=== PATIENT | female | born 1980 | race Caucasian/White ===

== ENCOUNTER 2023-07-11 07:33 | Day surgery (SDC) | payer OTHER, SELFPAY ==
[2023-07-11] VITALS (16 sets, daily range): BP systolic 78–121; BP diastolic 43–85; PULSE 53–90; RESP 16–18; TEMP 36.1–36.9; O2SAT 94–99; BMI 33.9
[2023-07-11 08:01] LABS: Ur HCG Qualitative* Negative (Negative)
--- NOTE | 2023-07-11 08:04 | W.PM.H&PU ---
History & Physical Update History & Physical Update H&P Reviewed and patient assessed: No changes noted
[2023-07-11] MEDS: SODIUM CHLORIDE 0.9 % (FLUSH) 10 ML SYRINGE IVF (08:15)
[2023-07-11] MEDS: LACTATED RINGERS 1000 ML 1,000 ML 100 ML IV (08:15)
[2023-07-11] MEDS: CEFAZOLIN 1 GM inj IVP (08:42)
[2023-07-11] MEDS: BUPIVACAINE 0.25 %/EPI 1:200K 30 ml 20 ML INJECTION (08:59)
--- NOTE | 2023-07-11 09:46 | P.ORPRC_ITS ---
Procedure Note Date of procedure: 07/11/23 Procedure: PREOPERATIVE DIAGNOSIS: 1. Left knee medial meniscus tear POSTOPERATIVE DIAGNOSIS: 1. Left knee medial meniscus tear PROCEDURE: 1. Left knee arthroscopic partial medial menisectomy SURGEON: Aston Mobley M.D. COPY CENTER ASSOCIATE: Josefa Lee P.A.-C. Of note, an certified surgical tech/first assistant was critical for this case to aid in patient positioning, knee manipulation, instrument exchange, and closure. ANESTHESIA: Spinal EBL: 5 mL TOURNIQUET: Not utilized COMPLICATIONS: None evident INDICATIONS: 43-year-old female with recent history of left knee pain. MRI revealed tear of the medial meniscus. Patient was subsequent offered surgical intervention consisting of left knee arthroscopic partial medial meniscectomy versus repair for symptomatic relief. FINDINGS: Examination under anesthesia revealed full knee range of motion. K nee was stable to varus and valgus stress. Jeanette's and posterior drawer tests were negative. Arthroscopic examination revealed complex tear of the medial meniscal body. 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 Normal cartilage of the femoral condyles and trochlear groove. Lateral meniscus, ACL, and PCL were all intact. DESCRIPTION OF PROCEDURE: After a thorough discussion of risks, benefits, and alternatives, the patient was brought to the operating room. Spinal anesthesia was administered patient was placed in the supine persistent or table. She was given 2 g of Ancef preoperatively for prophylaxis. The left lower extremity was prepped and draped in the appropriate sterile fashion. A surgical time-out was performed confirming patient identity, surgical site, and procedure. Anterolateral and anteromedial portal sites were injected 1% lidocaine. Anterior lateral portal was established. Anteromedial portal was established after localization with spinal needle. Diagnostic arthroscopy was performed with findings as noted above. Following the diagnostic arthroscopy, partial medial meniscectomy was performed using motorized shaver. Following partial meniscectomy the remnant meniscus was probed and confirmed to be stable. Approximately 10% of the overall meniscus was resected, but of the portion that was worked on, approximately 50 % of the depth was resected. At this stage, the shaver was reinserted into the suprapatellar pouch and all remaining meniscal debris was evacuated. There were also some adhesions in the suprapatellar pouch which were resected. Instruments were removed, excess fluid was drained, and closure performed with 4-0 Monocryl with Steri-Strips. Dressings were applied, and the patient was awoken from anesthesia and transferred to the PACU in stable condition. PLAN: 1. Weightbear as tolerated left lower extremity. Crutch / walker ambulation assistance PRN. 2. Ice, elevation, acetominophen and/or ibuprofen, and [place] for pain as needed. 3. Knee range of motion and quad sets/straight leg raise regularly. 4. Advance activities as tolerated without restrictions. 5. Follow up in orthopedic clinic in 1-2 weeks for a wound check.
--- NOTE | 2023-07-11 09:55 | W.ANESCHARGE ---
Anesthesia Charges Start Date/Time Anesthesia Start Date: 07/11/23 Anesthesia Start Time: 08:38 Stop Date/Time Anesthesia Stop Date: 07/11/23 Anesthesia Stop Time: 09:52
--- NOTE | 2023-07-11 10:00 | W.ANESCHARGE ---
Anesthesia Charges Start Date/Time Anesthesia Start Date: 07/11/23 Anesthesia Start Time: 08:38 Stop Date/Time Anesthesia Stop Date: 07/11/23 Anesthesia Stop Time: 09:52
[2023-07-11] MEDS: ePHEDrine sulfate 5 MG/ML inj IVP (10:08)
== END 2023-07-11 11:43 | disposition home or self-care (01) ==
PROVIDERS: PCP Family Medicine; Visit Provider Orthopaedic Surgery
PROC: (CPT 29870; principal; 2023-07-11 08:45)
DX: S83.232A Complex tear of medial meniscus, current injury, left knee, initial encounter (principal)
CPT/HCPCS: 29881; 01400; 81025; J0690; J1100; J1885; J2250; J2371; J2405; J2704; J3010; J7120